=== PATIENT | male | born 1995 | race Caucasian/White ===

== ENCOUNTER 2024-05-13 14:35 | Emergency (ER) | payer SELFPAY ==
[2024-05-13] VITALS (11 sets, daily range): BP systolic 116–134; BP diastolic 65–82; PULSE 77–106; RESP 11–23; TEMP 36.6; O2SAT 95–98; BMI 25.1
[2024-05-13 14:49] LABS: Add Manual Diff / Slide Review NO; Basophils Absolute Auto 100 /uL (0-100); Basophils Percent Auto 0.7 % (0-2); Eosinophils Absolute Auto 100 /uL (0-450); Hematocrit 49.3 % (41-53); Hemoglobin 16.2 g/dL (13.5-17.5); Lymphocytes Absolute Auto 4700 /uL (1100-4500); Lymphocytes Percent Auto 48.1 % (25-40); Mean Corpuscular HGB Conc 32.7 % (30-36); Mean Corpuscular Hemoglobin 29.2 PG (26-34); Mean Corpuscular Volume 89.2 fL (80-100); Monocytes Absolute Auto 800 /uL (0-900); Monocytes Percent Auto 8.5 % (3-14); Neutrophils Absolute Auto 4100 /uL (1500-7000); Neutrophils Percent Auto 41.7 % (50-75); Platelet Count 454 X10^3/uL (150-400); Red Blood Cell Count 5.53 X10^6/uL (4.5-5.9); Red Cell Distribution Width 14.9 % (11.6-14.8); White Blood Cell Count 9.8 X10^3/uL (4.5-11.0)
[2024-05-13 14:53] LABS: Prothrombin Time 11.2 SECONDS (9.4-12.5)
[2024-05-13 14:59] LABS: Ethanol (ETOH) < 10 mg/dL
[2024-05-13 15:00] LABS: Alanine Aminotransferase 74 IU/L (<50); Albumin 5.4 g/dL (3.5-5.0); Albumin Globulin Ratio 1.5 (1.0-2.8); Alkaline Phosphatase 64 U/L (38-126); Aspartate Aminotransferase 54 IU/L (17-59); BUN Creatinine Ratio 13.4 (6-22); Bilirubin Total 0.7 mg/dL (0.2-1.3); Blood Urea Nitrogen 18 mg/dL (9-20); Calcium 9.6 mg/dL (8.4-10.2); Chloride 105 mmol/L (98-107); Estimated Glomerular Filt Rate > 60 mL/min (>60); Globulin 3.5 g/dL (1.7-4.1); Glucose 107 mg/dL (70-100); HEMOLYSIS 29 (0-50); Potassium 4.3 mmol/L (3.4-5.1); Sodium 141 mmol/L (137-145); Total Protein 8.9 g/dL (6.3-8.2)
[2024-05-13 15:03] LABS: Carbon Dioxide 8 mmol/L (22-32)
--- NOTE | 2024-05-13 15:14 | ED_ITS ---
HPI - Seizure General Chief Complaint: Seizure Stated Complaint: New Seizure Time Seen by Provider: 05/13/24 15:14 History of Present Illness HPI Narrative: Patient 28-year-old healthy male who has a history of insomnia and depression presenting today with seizure. He reports that he has had some insomnia off and on for a long time. He has been drinking alcohol 1-3 beers however 6 days ago he had 6 beers but then got prescribed medication to temazepam where he took medication for nits of the road the did not take any last night. Today while on vacation or the beach she was sitting on a log with a girlfriend saw his face get kind of distorted she went over to him when he fell down lips turned blue foam at the mouth it had full body shaking. He did not bite his tongue or have urinary incontinence. Both girlfriend and patient are adamant about drinking excessive alcohol. He has not taken any Benadryl. Related Data Previous Rx's Medication Instructions Recorded lorazepam 0.5 mg tablet 0.5 mg PO BEDTIME #2 tabs 05/13/24 Allergies Allergy/AdvReac Type Severity Reaction Status Date / Time No Known Drug Allergies Allergy Verified 05/13/24 14:57 Patient History Alcohol type: beer Substance Use Type: does not use Exam Initial Vital Signs Initial Vital Signs: Vital Signs Pulse Rate 106 H 05/13/24 14:39 Respiratory Rate 11 L 05/13/24 14:39 Blood Pressure 121/65 05/13/24 14:39 Pulse Oximetry 95 05/13/24 14:39 GENERAL: Alert pleasant 28-year-old male and in no acute distress. HEENT: Head atraumatic,EOMI, pupils reactive, face symmetric, moist mucous membranes CARDIOVASCULAR: Regular rate and rhythm without murmurs, rubs or gallops. RESPIRATORY: Breath sounds equal bilaterally, no wheezes rales or rhonchi. ABDOMEN: Soft, nontender. Normoactive bowel sounds all 4 quadrants. No guarding or rebound. EXTREMITIES: Normal range of motion, no clubbing or edema. Neurovascularly intact NEUROLOGICAL: Alert and oriented x4.Normal gait and speech. Cranial nerves II through XII grossly intact. SKIN: Warm, dry, no laceration, no petechiae, no rashes or lesions. Course Orders Ordered: ED Orders 05/13/24 14:38 Complete Blood Count AUTO DIFF Stat Comprehensive Metabolic Panel Stat Ethanol (ETOH) Stat Lactate (Lactic Acid) Stat Prolactin Stat Prothrombin Time INR Stat 05/13/24 15:31 CT head/brain wo con Stat 05/13/24 15:36 Urinalysis and Microscopic Stat Urine Drug Screen, Rapid Stat Discontinued Medications Sodium Chloride (Normal Saline 0.9%) 1,000 mls @ 1,000 mls/hr IV BOLUS ONE Stop: 05/13/24 16:14 Last Infusion: 05/13/24 16:28 Dose: Infused Documented By: Admin: 05/13/24 15:19 Dose: 1,000 mls/hr Documented By: LIANA Lorazepam (Lorazepam 2 Mg/Ml Inj) 1 mg IV NOW ONE Stop: 05/13/24 16:16 Last Admin: 05/13/24 16:33 Dose: 0.5 mg Documented By: LIANA Vital Signs Vital signs: Vital Signs - 8 hr 05/13/24 14:39 05/13/24 14:39 05/13/24 14:40 Temperature 97.9 F Pulse Rate 106 H 104 H Respiratory Rate 11 L 20 Blood Pressure 121/65 121/65 Pulse Oximetry 95 96 Oxygen Delivery Method Room Air 05/13/24 14:45 05/13/24 15:00 05/13/24 15:00 Temperature Pulse Rate 102 H 92 H Respiratory Rate 23 14 Blood Pressure 116/76 Pulse Oximetry 96 96 Oxygen Delivery Method 05/13/24 15:15 05/13/24 15:31 05/13/24 16:00 Temperature Pulse Rate 87 97 H 92 H Respiratory Rate 17 18 19 Blood Pressure 124/82 Pulse Oximetry 97 98 98 Oxygen Delivery Method Room Air Room Air 05/13/24 16:29 05/13/24 16:30 05/13/24 17:00 Temperature Pulse Rate 77 78 80 Respiratory Rate 12 17 15 Blood Pressure 119/68 119/65 129/78 Pulse Oximetry 98 97 97 Oxygen Delivery Method Room Air 05/13/24 17:30 05/13/24 17:30 Temperature Pulse Rate 83 Respiratory Rate 16 Blood Pressure 134/81 Pulse Oximetry 95 Oxygen Delivery Method MDM - Seizure Lab Data 05/13/24 14:38 05/13/24 14:38 Labs: Lab Results 05/13/24 05/13/24 05/13/24 Range/Units 14:38 15:36 15:36 WBC 9.8 (4.5-11.0) X10^3/uL RBC 5.53 (4.5-5.9) X10^6/uL Hgb 16.2 (13.5-17.5) g/dL Hct 49.3 (41-53) % MCV 89.2 (80-100) fL MCH 29.2 (26-34) PG MCHC 32.7 (30-36) % RDW 14.9 H (11.6-14.8) % Plt Count 454 H (150-400) X10^3/uL Neut % (Auto) 41.7 L (50-75) % Lymph % (Auto) 48.1 H (25-40) % Bowie % (Auto) 8.5 (3-14) % Eos % (Auto) 1.0 L (2-4) % Baso % (Auto) 0.7 (0-2) % Neut # (Auto) 4100 (7677-0650) /uL Lymph # (Auto) 4700 H (0380-2490) /uL Bowie # (Auto) 800 (0-900) /uL Eos # (Auto) 100 (0-450) /uL Baso # (Auto) 100 (0-100) /uL PT 11.2 (9.4-12.5) SECONDS INR 1.0 (0.9-1.3) Sodium 141 (137-145) mmol/L Potassium 4.3 (3.4-5.1) mmol/L Chloride 105 (98-107) mmol/L Carbon Dioxide 8 L* (22-32) mmol/L BUN 18 (9-20) mg/dL Creatinine 1.34 H (0.66-1.25) mg/dL Estimated GFR > 60 (>60) mL/min BUN/Creatinine Ratio 13.4 (6-22) Glucose 107 H (70-100) mg/dL Lactate 15.3 H* (0.7-2.1) mmol/L Calcium 9.6 (8.4-10.2) mg/dL Total Bilirubin 0.7 (0.2-1.3) mg/dL AST 54 (17-59) IU/L ALT 74 H (<50) IU/L Alkaline Phosphatase 64 (38-126) U/L Total Protein 8.9 H (6.3-8.2) g/dL Albumin 5.4 H (3.5-5.0) g/dL Globulin 3.5 (1.7-4.1) g/dL Albumin/Globulin Ratio 1.5 (1.0-2.8) Prolactin 51.9 H (3.7-17.9) ng/mL Urine Color Yellow Urine Appearance Clear Urine pH 5.5 Normal (4.5-8.0) Ur Specific Hancock >=1.030 H (1.000-1.035) Urine Protein 2+ H (Negative) Urine Glucose (UA) Negative (Negative) g/dL Urine Ketones Negative (NEGATIVE) Urine Occult Blood 1+ H (Negative) Urine Nitrate Negative (Negative) Urine Bilirubin Negative (NEGATIVE) Urine Urobilinogen 0.2 (0.2) E.U./dL Ur Leukocyte Esterase Negative (NEGATIVE) Urine RBC 1-5/hpf (0-5/HPF) Urine WBC 0-1/hpf (0-5/HPF) Ur Squamous Epith Cells 0-1 /hpf (0-5/HPF) Urine Bacteria Occasional (0-1) (None) Hyaline Casts 1-5/lpf (None) Ur Culture Indicated? Cult not indicated Vol Urine Centrifuged 10ml (spun) U Opiates 300ng/mL cut Negative (Negative) Ur Oxycodone Screen Negative (Negative) Urine Methadone Screen Negative (Negative) Ur Barbiturates Screen Negative (Negative) U Tricyclic Antidepress Negative (Negative) Ur Phencyclidine Scrn Negative (Negative) Ur Amphetamines Screen Negative (Negative) U Methamphetamines Scrn Negative (Negative) Ur MDMA Scrn (Ecstasy) Negative (Negative) U Benzodiazepines Scrn Positive H (Negative) Urine Cocaine Screen Negative (Negative) U Marijuana (THC) Screen Negative (Negative) Urine Specific Hancock Normal (Normal) Ethyl Alcohol < 10 ( - 10) mg/dL Ur Creatinine Normal (Normal) 05/13/24 Range/Units 16:38 WBC (4.5-11.0) X10^3/uL RBC (4.5-5.9) X10^6/uL Hgb (13.5-17.5) g/dL Hct (41-53) % MCV (80-100) fL MCH (26-34) PG MCHC (30-36) % RDW (11.6-14.8) % Plt Count (150-400) X10^3/uL Neut % (Auto) (50-75) % Lymph % (Auto) (25-40) % Bowie % (Auto) (3-14) % Eos % (Auto) (2-4) % Baso % (Auto) (0-2) % Neut # (Auto) (8362-4534) /uL Lymph # (Auto) (2449-4581) /uL Bowie # (Auto) (0-900) /uL Eos # (Auto) (0-450) /uL Baso # (Auto) (0-100) /uL PT (9.4-12.5) SECONDS INR (0.9-1.3) Sodium (137-145) mmol/L Potassium (3.4-5.1) mmol/L Chloride (98-107) mmol/L Carbon Dioxide (22-32) mmol/L BUN (9-20) mg/dL Creatinine (0.66-1.25) mg/dL Estimated GFR (>60) mL/min BUN/Creatinine Ratio (6-22) Glucose (70-100) mg/dL Lactate 1.3 (0.7-2.1) mmol/L Calcium (8.4-10.2) mg/dL Total Bilirubin (0.2-1.3) mg/dL AST (17-59) IU/L ALT (<50) IU/L Alkaline Phosphatase (38-126) U/L Total Protein (6.3-8.2) g/dL Albumin (3.5-5.0) g/dL Globulin (1.7-4.1) g/dL Albumin/Globulin Ratio (1.0-2.8) Prolactin (3.7-17.9) ng/mL Urine Color Urine Appearance Urine pH (4.5-8.0) Ur Specific Hancock (1.000-1.035) Urine Protein (Negative) Urine Glucose (UA) (Negative) g/dL Urine Ketones (NEGATIVE) Urine Occult Blood (Negative) Urine Nitrate (Negative) Urine Bilirubin (NEGATIVE) Urine Urobilinogen (0.2) E.U./dL Ur Leukocyte Esterase (NEGATIVE) Urine RBC (0-5/HPF) Urine WBC (0-5/HPF) Ur Squamous Epith Cells (0-5/HPF) Urine Bacteria (None) Hyaline Casts (None) Ur Culture Indicated? Vol Urine Centrifuged U Opiates 300ng/mL cut (Negative) Ur Oxycodone Screen (Negative) Urine Methadone Screen (Negative) Ur Barbiturates Screen (Negative) U Tricyclic Antidepress (Negative) Ur Phencyclidine Scrn (Negative) Ur Amphetamines Screen (Negative) U Methamphetamines Scrn (Negative) Ur MDMA Scrn (Ecstasy) (Negative) U Benzodiazepines Scrn (Negative) Urine Cocaine Screen (Negative) U Marijuana (THC) Screen (Negative) Urine Specific Hancock (Normal) Ethyl Alcohol ( - 10) mg/dL Ur Creatinine (Normal) Point of Care Testing Glucose POC [address] scan - head: Radiologist's Impression: PROCEDURE: CT HEAD/BRAIN WO CON INDICATIONS: seizure TECHNIQUE: Noncontrast 4.5 mm thick angled axial sections acquired from the foramen magnum to the vertex, with coronal and sagittal reformats. For radiation dose reduction, the following was used: automated exposure control, adjustment of mA and/or kV according to patient size. COMPARISON: None. FINDINGS: Image quality: Diagnostic. CSF spaces: Basal cisterns are patent. No extra-axial fluid collections. Ventricles are normal in size and shape. Brain: No midline shift. No intracranial masses or hemorrhage. Jameson-white matter interface is normal. Skull and face: Calvarium and visualized facial bones are intact, without suspicious lesions. Sinuses: Visualized sinuses and mastoids are clear. IMPRESSION: No acute intracranial pathology. Dictated by: Kenzie Cruz M.D. on 05/13/2024 at 14:51 MDM Narrative Medical decision making narrative: Patient 28-year-old male presents today with first-time seizure. He does have an elevated lactate of 15 bicarb of 8, with elevated prolactin a 51 consistent with seizure. It does sound like they are both honest about his alcohol intake he also did not have any alcohol for about 4-5 days and had the temazepam instead. I suspect this is drug-induced seizure temazepam as the new medications however duloxetine can also have an adverse side effect of seizure as well. He does not think that he is take it couple doses although he could remember if he took it today are not. Head CT does not show any abnormality Lactate improved significantly with only 1 L of fluid again consistent with seizure and not sepsis I will write him for short taper of benzos as I do think that it is a benzo withdrawal seizure. He was drinking some alcohol and then it was immediately replaced with temazepam he stopped taking temazepam and within 24 hours had a seizure. Parents are at bedside I have explained updated test results symptoms I suspect his happened. They report that he is very sensitive to medication. He really is only take it 4 days the diazepam but he had a similar reaction to Vyvanse he did have a seizure but he after 3 days stopped taking get it it had severe side effects from it. He has given a dose of IV Ativan here in the ED just to help cover him today he got 0.5 mg it has been sleeping ever since. He seems very sensitive to medications Discharge Plan Departure Patient Disposition: Home Clinical Impression: New onset seizure Instructions: DI for Seizure (Not Epilepsy/Seizure Disorder) Activity Restrictions/Additional Instructions: Do not drive until cleared by your PCP or Neurology for 6 months to 1 year. Must be seizure free. *You have been diagnosed with seizure *What to do: At this time I do think that your seizure is related to medication temazepam. Also duloxetine can worsened insomnia. Please discuss with your PCP in regards to medication It is still possible that you may have another withdrawal seizure But do not recommend drinking alcohol *Continue to take medications as directed Ativan 0.5 mg at bedtime tomorrow x1 Ativan 0.25 mg at bedtime x2 *Follow up with your primary care provider in 2-3 days or call [phone] *Return to ER if you should have recurrent seizure or any new, worsening or concerning symptoms Prescriptions: New lorazepam 0.5 mg tablet 0.5 mg PO BEDTIME Qty: 2 0RF Rx Instructions: 0.5mg at bedtime x1, then 0.25mg at bedtime x 2 Stand Alone Forms: Patient Portal/API
[2024-05-13 15:17] LABS: Prolactin 51.9 ng/mL (3.7-17.9)
[2024-05-13] MEDS: SODIUM CHLORIDE 0.9% 1,000 ML 1000 ML IV (15:19)
[2024-05-13 15:24] LABS: Lactate (Lactic Acid) 15.3 mmol/L (0.7-2.1)
--- NOTE | 2024-05-13 15:31 | DI.CT.S_ITS ---
PROCEDURE: CT HEAD/BRAIN WO CON INDICATIONS: seizure TECHNIQUE: Noncontrast 4.5 mm thick angled axial sections acquired from the foramen magnum to the vertex, with coronal and sagittal reformats. For radiation dose reduction, the following was used: automated exposure control, adjustment of mA and/or kV according to patient size. COMPARISON: None. FINDINGS: Image quality: Diagnostic. CSF spaces: Basal cisterns are patent. No extra-axial fluid collections. Ventricles are normal in size and shape. Brain: No midline shift. No intracranial masses or hemorrhage. Jameson-white matter interface is normal. Skull and face: Calvarium and visualized facial bones are intact, without suspicious lesions. Sinuses: Visualized sinuses and mastoids are clear. IMPRESSION: No acute intracranial pathology. Dictated by: Kenzie Cruz M.D. on 05/13/2024 at 14:51 Approved by: Kenzie Cruz M.D. on 05/13/2024 at 14:53
[2024-05-13 15:40] LABS: Appearance Urine UA CLEAR; Bilirubin Urine UA NEGATIVE (NEGATIVE); Color Urine UA YELLOW; Glucose Urine UA NEGATIVE (Negative); Ketones Urine UA NEGATIVE (NEGATIVE); Leukocyte Esterase Urine UA NEGATIVE (NEGATIVE); Nitrite Urine UA NEGATIVE (Negative); Occult Blood Urine UA 1+ (Negative); Protein Urine UA 2+ (Negative); Specific Gravity Urine UA >=1.030 (1.000-1.035); Urobilinogen Urine UA 0.2 E.U./dL (0.2); pH Urine UA 5.5 (4.5-8.0)
[2024-05-13 15:47] LABS: Ur Creatinine Normal (Normal); Ur Specific Gravity Normal (Normal); Urine pH Normal (Normal)
[2024-05-13 15:48] LABS: UR Morphine/Opiate cutoff 300 Negative (Negative); Urine Amphetamines Negative (Negative); Urine Barbiturates Negative (Negative); Urine Benzodiazepines Positive (Negative); Urine Cocaine Negative (Negative); Urine MDMA Negative (Negative); Urine Methadone Negative (Negative); Urine Methamphetamines Negative (Negative); Urine Oxycodone Negative (Negative); Urine Phencyclidine Negative (Negative); Urine Tetrahydrocannabinol Negative (Negative); Urine Tricyclic Antidepressant Negative (Negative)
[2024-05-13 15:55] LABS: Bacteria Urine Occasional (0-1); Culture Indicated Urine Cult Not Indicated; Hyaline Casts Urine 1-5/LPF; RBC Urine 1-5/HPF (0-5/HPF); Squamous Epithelial Cell Urine 0-1 /HPF (0-5/HPF); Urine Volume 10mL (spun); WBC Urine 0-1/HPF (0-5/HPF)
[2024-05-13] MEDS: LORazepam 2 MG/ML INJ 1 MG IV (16:33)
[2024-05-13 16:44] LABS: Reflexed Lactate in 2 Hours Y
[2024-05-13 16:55] LABS: Lactate 2HR (Lactic Acid Rflx) 1.3 mmol/L (0.7-2.1)
== END 2024-05-13 17:54 | disposition home or self-care (01) ==
PROVIDERS: Emergency Provider Emergency Medicine
DX: G40.909 Epilepsy, unspecified, not intractable, without status epilepticus (principal)
CPT/HCPCS: 36415; 70450; 80053; 80305; 80320; 81001; 82962; 83605; 84146; 85025; 85610; 96361; 96374; 99284; J2060